=== PATIENT | male | born 1945 | race Caucasian/White ===

== ENCOUNTER → 2016-11-10 | Outpatient (CLI) | payer MEDICARE ==
--- NOTE | 2016-11-10 10:57 | RAD ---
CT of the chest without contrast, 11/10/2016: History: Lung nodule No previous CT studies are available at this time for comparison purposes. There is moderate calcific plaquing of the thoracic aorta without evidence of aneurysm. Moderate coronary artery calcifications are present. A small right thyroid calcification is present. No mediastinal adenopathy is seen. There are a few scattered linear parenchymal opacities compatible with scars. There is a 3 mm noncalcified nodule in the lateral aspect of the right upper lobe as seen on image 122 of series #3. The sagittal view suggests that it is somewhat elongated, most likely a scar. No other pulmonary nodule, mass or significant infiltrate was identified. There is no evidence of pleural fluid. Moderate hypertrophic degenerative changes are present in the spine. Several old healed rib fractures are present posteriorly in the left. IMPRESSION: 1. Mild scattered parenchymal scars. 2. Tiny right upper lobe pulmonary nodule as described above. 3. Coronary artery disease PQRS Compliance Statement: One or more of the following individualized dose reduction techniques were utilized for this examination: 1. Automated exposure control 2. Adjustment of the mA and/or kV according to patient size 3. Use of iterative reconstruction technique
== END | disposition home or self-care (01) ==
LOC: CT 08:56
PROVIDERS: ATTEND Internal Medicine Critical Care Medicine
DX: R91.1 Solitary pulmonary nodule (principal); I25.10 Atherosclerotic heart disease of native coronary artery without angina pectoris
CPT/HCPCS: 71250

== ENCOUNTER → 2017-09-28 | Outpatient (CLI) | payer MEDICARE | END | disposition home or self-care (01) | LOC: CT 10:33 | DX: I25.10 Atherosclerotic heart disease of native coronary artery without angina pectoris (principal); K76.0 Fatty (change of) liver, not elsewhere classified | CPT/HCPCS: 71250 ==

== ENCOUNTER → 2018-08-20 | Outpatient (CLI) | payer MEDICARE, OTHER | END | disposition home or self-care (01) | LOC: PMGWOUND 10:28 | PROVIDERS: ATTEND Emergency Medicine Undersea and Hyperbaric Medicine | DX: L89.893 Pressure ulcer of other site, stage 3 (principal); I10 Essential (primary) hypertension; L40.52 Psoriatic arthritis mutilans; G47.30 Sleep apnea, unspecified; E78.00 Pure hypercholesterolemia, unspecified; J44.9 Chronic obstructive pulmonary disease, unspecified; I25.10 Atherosclerotic heart disease of native coronary artery without angina pectoris; Z87.891 Personal history of nicotine dependence; Z85.46 Personal history of malignant neoplasm of prostate | CPT/HCPCS: G0463 ==

== ENCOUNTER → 2018-08-27 | Outpatient (CLI) | payer MEDICARE, OTHER | END | disposition home or self-care (01) | LOC: PMGWOUND 12:20 | PROVIDERS: ATTEND Emergency Medicine Undersea and Hyperbaric Medicine | DX: L89.893 Pressure ulcer of other site, stage 3 (principal); L97.511 Non-pressure chronic ulcer of other part of right foot limited to breakdown of skin; G47.30 Sleep apnea, unspecified; L40.52 Psoriatic arthritis mutilans; I10 Essential (primary) hypertension; E78.00 Pure hypercholesterolemia, unspecified; J44.9 Chronic obstructive pulmonary disease, unspecified; I25.10 Atherosclerotic heart disease of native coronary artery without angina pectoris; Z85.46 Personal history of malignant neoplasm of prostate; Z87.891 Personal history of nicotine dependence | CPT/HCPCS: 99214; G0463 ==

== ENCOUNTER → 2018-09-03 | Outpatient (CLI) | payer MEDICARE, OTHER | END | disposition home or self-care (01) | LOC: PMGWOUND 09:38 | PROVIDERS: ATTEND Emergency Medicine Undersea and Hyperbaric Medicine | DX: L89.893 Pressure ulcer of other site, stage 3 (principal); L97.511 Non-pressure chronic ulcer of other part of right foot limited to breakdown of skin; G47.30 Sleep apnea, unspecified; L40.52 Psoriatic arthritis mutilans; I10 Essential (primary) hypertension; E78.00 Pure hypercholesterolemia, unspecified; J44.9 Chronic obstructive pulmonary disease, unspecified; I25.10 Atherosclerotic heart disease of native coronary artery without angina pectoris; Z87.891 Personal history of nicotine dependence; Z85.46 Personal history of malignant neoplasm of prostate | CPT/HCPCS: 99213; G0463 ==

== ENCOUNTER → 2018-09-11 | Outpatient (CLI) | payer MEDICARE, OTHER | END | disposition home or self-care (01) | LOC: PMGWOUND 09:55 | PROVIDERS: ATTEND Preventive Medicine Undersea and Hyperbaric Medicine | DX: L97.511 Non-pressure chronic ulcer of other part of right foot limited to breakdown of skin (principal); L89.893 Pressure ulcer of other site, stage 3; B35.3 Tinea pedis; G47.30 Sleep apnea, unspecified; L40.52 Psoriatic arthritis mutilans; I10 Essential (primary) hypertension; J44.9 Chronic obstructive pulmonary disease, unspecified; E78.00 Pure hypercholesterolemia, unspecified; I25.10 Atherosclerotic heart disease of native coronary artery without angina pectoris; E66.9 Obesity, unspecified; Z68.41 Body mass index [BMI] 40.0-44.9, adult; Z87.891 Personal history of nicotine dependence; Z85.46 Personal history of malignant neoplasm of prostate | CPT/HCPCS: 87102; 99214; G0463 ==

== ENCOUNTER → 2018-09-17 | Outpatient (CLI) | payer MEDICARE, OTHER | END | disposition home or self-care (01) | LOC: PMGWOUND 12:22 | PROVIDERS: ATTEND Emergency Medicine Undersea and Hyperbaric Medicine | DX: L89.899 Pressure ulcer of other site, unspecified stage (principal); G47.30 Sleep apnea, unspecified; L40.52 Psoriatic arthritis mutilans; I10 Essential (primary) hypertension; E78.00 Pure hypercholesterolemia, unspecified; J44.9 Chronic obstructive pulmonary disease, unspecified; I25.10 Atherosclerotic heart disease of native coronary artery without angina pectoris; E66.9 Obesity, unspecified; Z68.41 Body mass index [BMI] 40.0-44.9, adult; Z87.891 Personal history of nicotine dependence; Z85.46 Personal history of malignant neoplasm of prostate | CPT/HCPCS: 99213; G0463 ==

== ENCOUNTER → 2021-07-04 | Day surgery (SDC) | payer MEDICARE, OTHER ==
[~2021-07-04] VITALS: Ht 144.8 cm; Wt 122.4 kg
[~2021-07-04] MED LIST: APIX5TAB PO; APRE30TA2 PO; CHLO25TA10 PO; DILT360C PO; EZET10TA20 PO; GLYCOPYRROLATE 1 MG/5 ML VIAL. ONE; IV RINGERS,LACTATED 1000ML 1,000 ML IV SCH; LIDOCAINE 2% PF 5 ML VIAL. ONE; OLME40TA12 PO; PROPOFOL 10 MG/ML (20ML) VIAL. IV ONE; SOTA80TA48 PO
[2021-07-04 12:41] VITALS: BP 133/64
--- NOTE | 2021-07-04 13:44 | PDOC4 ---
PROCEDURE Procedure EGD/colonoscopy with snare, biopsies Indication: heartburn, FH colon cancer, hematochezia Meds: per anesthesia Findings: SILKE with prostatic absence. ----'Scope advanced to cecum. Prep good. Mucosa normal. Multiple diverticula, sigmoid. 8mm polyp, sigmoid, snared/recovered. Multiple 3-4 mm polyps, transverse, biopsied off. 2, 3-4mm polyps, cecum/ascending, biopsied off. Distal radiation proctitis Internal hemorrhoids on retroflex. E--Grade A esophagitis at 43 cm. G--Normal D--normal to second portion. Matias. well. IMP: GERD Diverticulosis. Multiple polyps, removed. Radiation proctitis. Internal hemorrhoids. REC: Resume home meds, diet. Await path. F/u in 2 weeks. Repeat colonoscopy 5 years. No effective medical treatment for the proctitis; if not anemic, would not treat. MARTINEZ ANGELES MD Jul 04, 2021 13:44
[2021-07-04 14:00] VITALS: BP 110/62
--- NOTE | 2021-07-06 16:10 | PATHOLOGY ---
[facility] Accession Number: [id number] . 01 Material submitted: . PART A: sigmoid colon - SIGMOID POLYP PART B: colon - TRANSVERSE POLYP BIOPSIES. Modifiers: transverse PART C: cecum - CECAL POLYP BIOPSIES . 01 Clinical history: . RECTAL BLEED, GERD EGD, COLONOSCOPY . 02 Diagnosis: A. Colon biopsy, sigmoid polyp: - Tubular adenoma. . B. Colon biopsies, transverse colon polyps: - Tubular adenomas. . C. Colon biopsies, cecal polyps: - Tubular adenomas. (JPM:concha; 07/06/2021) QMS 07/06/2021 0946 Local . 02 Comment: There is no high grade dysplasia or evidence of malignancy. (JPM:concha; 07/06/2021) . 02 Electronically signed: . Flip Samuels MD, Pathologist NPI- [id number] . 01 Gross description: . A. The specimen is received in formalin, labeled "Silas Floetke, sigmoid polyp". Received is a segment of pale orantes tissue measuring 0.4 cm in maximum dimensions. The specimen is submitted entirely in cassette A1. . B. The specimen is received in formalin, labeled "Silas Floetke, transverse colon polyp biopsies". Received are five segments of pale orantes tissue ranging in size from 0.3-0.6 cm in maximum dimensions. The specimen is submitted entirely in cassette B1. . C. The specimen is received in formalin, labeled "Silas Floetke, cecum polyp biopsy". Received are three segments of pale orantes tissue ranging in size from 0.2-0.6 cm in maximum dimensions. The specimen is submitted entirely in cassette C1. (CAA; 07/05/2021) QAC/QAC 07/05/2021 0950 Local . 02 Pathologist provided ICD-10: D12.5, D12.3, D12.0 . 02 CPT . 585790, 293405, 726017 Specimen Comment: A courtesy copy of this report has been sent to [phone], [phone] Specimen Comment: [phone] Specimen Comment: Report sent to / DR RODRÍGUEZ Specimen Comment: A duplicate report has been generated due to demographic updates. Performed at: 01 [facility] [address], [place] [id number] MD Shad Wheeler MD Phone: [phone] Performed at: 02 [facility] [address] [place], [place] [id number] MD Flip Samuels MD Phone: [phone]
== END | disposition home or self-care (01) ==
LOC: ENDOS 12:11
PROVIDERS: ATTEND Internal Medicine Gastroenterology
DX: K92.1 Melena (principal); R12 Heartburn; K64.0 First degree hemorrhoids; K21.00 Gastro-esophageal reflux disease with esophagitis, without bleeding; D12.5 Benign neoplasm of sigmoid colon; D12.3 Benign neoplasm of transverse colon; D12.0 Benign neoplasm of cecum; K63.89 Other specified diseases of intestine; K31.89 Other diseases of stomach and duodenum; K57.30 Diverticulosis of large intestine without perforation or abscess without bleeding; K62.7 Radiation proctitis; I10 Essential (primary) hypertension; I48.91 Unspecified atrial fibrillation; E78.00 Pure hypercholesterolemia, unspecified; G47.30 Sleep apnea, unspecified; M19.90 Unspecified osteoarthritis, unspecified site; Z87.891 Personal history of nicotine dependence; Z80.0 Family history of malignant neoplasm of digestive organs; Z79.899 Other long term (current) drug therapy; Z98.890 Other specified postprocedural states; Z88.1 Allergy status to other antibiotic agents; Z88.2 Allergy status to sulfonamides; Z88.8 Allergy status to other drugs, medicaments and biological substances
CPT/HCPCS: 43235; 45380; 45385; J2704; J3490

== ENCOUNTER 2021-09-21 10:07 | Outpatient (CLI) | payer MEDICARE, OTHER ==
[2021-09-21] VITALS (7 sets, daily range): BP systolic 139–151; BP diastolic 70–77
[~2021-09-21] VITALS: Ht 170.2 cm; Wt 127.7 kg
[~2021-09-21 10:07] MED LIST changes: -GLYCOPYRROLATE 1 MG/5 ML VIAL. ONE; -IV RINGERS,LACTATED 1000ML 1,000 ML IV SCH; -LIDOCAINE 2% PF 5 ML VIAL. ONE; -PROPOFOL 10 MG/ML (20ML) VIAL. IV ONE
[2021-09-21 10:53] LABS: BASO % 0 % (0-3); EOS # 0.2 x10^3/uL (0.0-0.7); EOS % 4 % (0-3); HEMOGLOBIN 13.8 g/dL (13.0-17.5); LYMPH # 0.5 x10^3/uL (1.0-4.8); LYMPH % 12 % (24-48); MEAN CORPUSCULAR HEMOGLOBIN 31 pg (25-35); MEAN CORPUSCULAR HGB CONC 34 g/dL (31-37); MEAN CORPUSCULAR VOLUME 92 fL (79-100); MONO # 0.4 x10^3/uL (0.0-1.1); MONO % 10 % (0-9); NEUT % 73 % (31-73); PLATELET COUNT 172 x10^3/uL (140-400); RED BLOOD COUNT 4.45 x10^6/uL (4.30-5.70); RED CELL DISTRIBUTION WIDTH 17.6 % (11.5-14.5); WHITE BLOOD COUNT 4.1 x10^3/uL (4.0-11.0)
[2021-09-21] MEDS ORDERED: FAMO10TA5 PO (10:58)
[2021-09-21] MEDS ORDERED: TADA5TAB PO (10:58)
[2021-09-21] MEDS ORDERED: FAMO-152 PO (10:58)
[2021-09-21] MEDS ORDERED: SIME180C61 PO (10:58)
[2021-09-21] MEDS ORDERED: GUAI12003 PO (10:58)
[2021-09-21] MEDS ORDERED: MULT-496 PO (10:58)
[2021-09-21] MEDS ORDERED: LACT100C2 PO (10:58)
--- NOTE | 2021-09-21 12:12 | NUR ---
Discharge Note: CAMERON TRIPATHI Discharge instructions and discharge home medications reviewed with Patient and a copy given. All questions have been answered and understanding verbalized. The following instructions and handouts were given: thoracentesis Dressing to R back dry and intact. Patient discharged to Home or Self Care with Spouse via Ambulated JS RN Addendum: 09/21/21 at 1215 by EMILY GARCIA RN Amended: Links added.
--- NOTE | 2021-09-21 14:18 | RAD ---
Ultrasound Guided Thoracentesis Indication: Adult male with right pleural effusion. Consent: The procedure was explained in its entirety to the patient or the patients designated repres entative by a member of the treatment team, including a discussion of the risks, benefits and commonl y accepted alternatives to the procedure, as well as the expected consequences of not performing the procedure. Discussion of the risks included, but was not limited to, those that are most frequent an d those that are rare but possibly severe or life-threatening, as well as the possibility of unforese en complications. Sterility: The procedure was performed in its entirety using appropriate elements of sterile techniqu e. Technique and Findings: Following informed consent, the patient was prepped and draped in the usual s terile fashion. Ultrasound interrogation of the area of interest revealed a pleural effusion. Under ultrasound guidance, a 6 turkish Das-C-Jvufqudx catheter was inserted into the pleural space and 825 mL of thin yellow fluid was removed. The catheter was removed and hemostasis was achieved with manua l compression. Chest x-ray was ordered. Complications: No immediate Impression: 1. Ultrasound-guided right thoracentesis as described. Electronically signed by: King Vences MD (09/21/2021 2:15 PM) [id number]
--- NOTE | 2021-09-23 15:33 | PATHOLOGY ---
Note [facility] Accession Number: [id number] TESTS RESULT FLAG UNITS REF RANGE LAB Clinician Provided Cytology Information No. of containers..01 Other (Miscellaneous) Source: RIGHT PLEURAL FLUID DIAGNOSIS: 02 RIGHT PLEURAL FLUID NEGATIVE FOR MALIGNANT CELLS. FOCALLY REACTIVE MESOTHELIAL CELLS ARE PRESENT. THIS EVALUATION INCLUDES EXAMINATION OF A CELL BLOCK. Signed out by: 02 Flip Samuels MD, Pathologist NPI- [id number] Performed by: Bernard Bejarano, Geometry Professor ([facility]) Gross description: 01 30ML, YELLOW, HAZY /LCS 09/22/2021 1753 Local FLAG LEGEND: L-Low Normal,H-High Normal,LL-Alert Low,HH-Alert High <-Panic Low,>-Panic High,A-Abnormal,AA-Critical Abnormal Performed at: [address] [place] [address] Shad Wheeler MD, 02 [facility] [address] [place] [address] Flip Sameuls MD, Specimen Comment: A courtesy copy of this report has been sent to [phone] Specimen Comment: Report sent to Performed at: [address] [place] [address] [address], [place], [place] [id number] MD Shad Wheeler MD Phone: [phone]
== END 2021-09-21 12:15 | disposition home or self-care (01) ==
LOC: INTRAD 10:07
PROVIDERS: ATTEND Internal Medicine Critical Care Medicine
DX: J90 Pleural effusion, not elsewhere classified (principal); I10 Essential (primary) hypertension; I48.91 Unspecified atrial fibrillation; E78.00 Pure hypercholesterolemia, unspecified; G47.30 Sleep apnea, unspecified; K21.9 Gastro-esophageal reflux disease without esophagitis; M19.90 Unspecified osteoarthritis, unspecified site; Z87.891 Personal history of nicotine dependence; Z79.899 Other long term (current) drug therapy; Z98.890 Other specified postprocedural states; Z72.89 Other problems related to lifestyle; Z88.1 Allergy status to other antibiotic agents; Z88.2 Allergy status to sulfonamides; Z88.8 Allergy status to other drugs, medicaments and biological substances
CPT/HCPCS: 32555; 36415; 83615; 84157; 85025; 85610; 87075